=== PATIENT | female | born 1985 ===

== ENCOUNTER 2018-06-13 07:46 | Outpatient (CLI) | payer BC ==
[2018-06-13 11:17] LABS: HGB - HEMOGLOBIN 13.8 g/dL (12.0-16.0); MEAN CORPUSCULAR HEMOGLOBIN 29.8 pg (27.0-31.0); MEAN CORPUSCULAR VOLUME 85.2 fL (81.0-99.0); MEAN PLATELET VOLUME 6.7 fL (7.9-10.8); RED BLOOD COUNT 4.64 10^6/uL (4.20-5.40); RED CELL DISTRIBUTION WIDTH 13.8 % (12.0-15.0); WHITE BLOOD COUNT 5.1 x10^3/uL (4.8-10.8)
[2018-06-13 11:38] LABS: HB2 TOTAL 14.4 g/dL; HEMOGLOBIN A1C 0.5 g/dL; HEMOGLOBIN A1C % 5.3 % (4.6-6.2)
== END 2018-06-13 07:47 | disposition home or self-care (01) ==
LOC: LAB.F 07:46
PROVIDERS: ATTEND Registered Nurse
DX: N93.9 Abnormal uterine and vaginal bleeding, unspecified (principal)
CPT/HCPCS: 36415; 82951; 83036; 84443; 85027

== ENCOUNTER 2018-06-13 17:27 | Outpatient (CLI) | payer BC ==
--- NOTE | 2018-06-14 15:20 | Ultrasound Report ---
Reason: ABNORMAL UTERINE AND VAGINAL BLEEDING Procedure Date: 06/13/2018 Accession Number: [id number] / [id number] Procedure: US - Pelvic w/Transvaginal CPT Code: FULL RESULT: EXAM: PELVIC ULTRASOUND EXAM DATE: 06/13/2018 06:19 PM. CLINICAL HISTORY: ABNORMAL UTERINE AND VAGINAL BLEEDING. status is unknown COMPARISON: None. TECHNIQUE: Realtime transabdominal pelvic scan performed to identify the uterus and adnexa and as an overview of other pelvic structures, followed by transvaginal scan to provide greater detail of the uterus and adnexa, with static image documentation. FINDINGS: Uterus: 7.6 x 3.9 x 2.9 cm cm, volume 45 cc. Anteverted position. Normal overall size and echotexture. Masses: None. Endometrium: 4 mm. Small ovoid anechoic structure that measures 3 x 7 x 2 mm. No vascularity to the lesion. Cervix: Unremarkable. Right Ovary: 3.9 x 2.7 x 1.9 cm, volume 10.6 cc. Normal echotexture and blood flow. Left Ovary: 3.3 x 2.1 x 2.6 cm, volume 9.5 cc. A small echogenic focus that measures 5 mm is seen. There is normal color Doppler flow and background ovarian echogenicity is normal. Free Fluid: None. Other: None. IMPRESSION: Essentially a normal pelvic ultrasound, however there is a subcentimeter ovoid area of anechogenicity within the endometrium. Could represent a tiny amount of blood or fluid, pseudo-gestational sac, and correlation with a serum beta hCG is recommended. In the setting of a negative test, no further follow-up imaging would be recommended, however if patient is , ectopic cannot be excluded and ultrasound follow-up would be necessary in 1 week. RADIA
== END 2018-06-13 17:28 | disposition home or self-care (01) ==
LOC: DI 17:27
PROVIDERS: ATTEND Registered Nurse
DX: N93.9 Abnormal uterine and vaginal bleeding, unspecified (principal)
CPT/HCPCS: 36415; 76830; 76856; 82951; 83036; 84443; 85027

== ENCOUNTER 2018-06-21 07:49 | Outpatient (CLI) | payer BC | END 2018-06-21 07:50 | disposition home or self-care (01) | LOC: LAB 07:49 | PROVIDERS: ATTEND Registered Nurse | DX: N93.9 Abnormal uterine and vaginal bleeding, unspecified (principal) | CPT/HCPCS: 36415; 82951 ==

== ENCOUNTER 2018-11-11 09:21 | Outpatient (CLI) | payer BC ==
--- NOTE | 2018-11-12 00:58 | Ultrasound Report ---
Reason: OVARIAN DYSFUNCTION Procedure Date: 11/11/2018 Accession Number: [id number] / [id number] Procedure: US - Pelvic w/Transvaginal CPT Code: FULL RESULT: EXAM: PELVIC ULTRASOUND EXAM DATE: 11/11/2018 10:04 AM. CLINICAL HISTORY: OVARIAN DYSFUNCTION. COMPARISON: PELVIC W/TRANSVAGINAL 06/13/2018 5:31 PM. TECHNIQUE: Realtime transabdominal pelvic scan performed to identify the uterus and adnexa and as an overview of other pelvic structures, followed by transvaginal scan to provide greater detail of the uterus and adnexa, with static image documentation. FINDINGS: Uterus: 7.8 x 3.4 x 4.2 cm, volume 58 cc. Anteverted position. Normal overall size and echotexture. Masses: None. Endometrium: 8 mm. No focal endometrial abnormalities. Cervix: Multiple nabothian cysts. Right Ovary: 3.7 x 2.3 x 3.7 cm, volume 16.7 cc. Normal echotexture and blood flow. Increased numbers of predominantly peripheral follicles. Left Ovary: 3.6 x 1.8 x 3.1 cm, volume 10.2 cc. Normal echotexture and blood flow. Increased numbers of predominantly peripheral follicles. Free Fluid: None. Other: None. IMPRESSION: Polycystic ovarian morphology, consistent with given history of PCOS. RADIA
== END 2018-11-11 09:22 | disposition home or self-care (01) ==
LOC: DI 09:21
PROVIDERS: ATTEND Registered Nurse
DX: E28.2 Polycystic ovarian syndrome (principal)
CPT/HCPCS: 76830; 76856

== ENCOUNTER 2018-11-17 08:36 | Outpatient (CLI) | payer BC | END 2018-11-17 08:37 | disposition home or self-care (01) | LOC: LAB.F 08:36 | PROVIDERS: ATTEND Registered Nurse | DX: E03.9 Hypothyroidism, unspecified (principal) | CPT/HCPCS: 36415; 84443 ==

== ENCOUNTER 2018-12-08 08:50 | Outpatient (CLI) | payer MEDICAID ==
[2018-12-08] MEDS ORDERED: IOTHALAMATE MEGLUMINE 50 ML VIAL ONE (09:24)
--- NOTE | 2018-12-08 13:15 | XRAY Report ---
Reason: INFERTILITY Procedure Date: 12/08/2018 Accession Number: [id number] / [id number] Procedure: FL - Hysterosalpingogram CPT Code: FULL RESULT: EXAM: HYSTEROSALPINGOGRAM EXAM DATE: 12/08/2018 10:21 AM. CLINICAL HISTORY: INFERTILITY. COMPARISONS: None. TECHNIQUE: Patient was placed in the lithotomy position. A speculum was utilized to visualize the cervix. The cervical os was cleansed with Betadine swabs and a hysterosalpingography catheter inserted without complication through the cervical canal and the balloon inflated. Under fluoroscopic observation, the endometrial canal was filled with sterile contrast. Multiple spot views were saved for review. Fluoroscopy Time: 1.2 minutes. Number of fluoroscopy images: 6. FINDINGS: Uterus: The endometrial canal is well distended with contrast and has a smooth normal contour. Tubes: The fallopian tubes fill with contrast without delay bilaterally. They are normal in caliber with smooth contour. No obstruction evident. Contrast spills into the peritoneum bilaterally. Other: The initial images showing nondilated fallopian tubes and a normal endometrial cavity did not transfer over, but under fluoroscopy they were entirely normal. Images that were documented revealed bilateral peritoneal spillage. IMPRESSION: Normal hysterosalpingogram. No tubal obstruction or filling defects. RADIA
== END 2018-12-08 08:51 | disposition home or self-care (01) ==
LOC: DI 08:50
PROVIDERS: ATTEND Registered Nurse
DX: N97.9 Female infertility, unspecified (principal)
CPT/HCPCS: 58340; 74740; Q9961

== ENCOUNTER 2019-04-02 13:30 | Outpatient (CLI) | payer OTHER, MEDICAID ==
--- NOTE | 2019-04-04 15:42 | Ultrasound Report ---
Reason: TEST POSITIVE Procedure Date: 04/02/2019 Accession Number: [id number] / [id number] Procedure: US - OB First Trimester CPT Code: FULL RESULT: EXAM: FIRST TRIMESTER OBSTETRIC ULTRASOUND (Less than 11 weeks) EXAM DATE: 04/02/2019 02:26 PM. CLINICAL HISTORY: TEST POSITIVE. LMP: 02/08/2019. COMPARISONS: None. TECHNIQUE: Transabdominal and transvaginal ultrasound examination with static image documentation. CLINICAL DATES: EGA 7 weeks 4 days with GERBER 11/14/2018 based on LMP. ASSESSMENT: Gestational Sac: Single intrauterine. Mean gestational sac diameter: 20.4 mm = 6 weeks 6 days. Embryo: CRL (crown-rump length) 8.1 mm = 6 weeks 5 days. Cardiac activity: 161 beats per minute. Yolk sac: 4.5 mm. Amniotic fluid: Not accurately assessed at this gestational age. Early placenta: Not visible at this gestational age. Other: Small inferior perigestational fluid collection noted 0.9 x 0.5 x 0.9 cm. MATERNAL STRUCTURES: Uterus: Anteverted. Unremarkable. Cervix: Closed. Right Ovary/Adnexa: The ovary measures 2.8 x 1.7 x 2.0 cm, volume 5.4 cc. Unremarkable. Left Ovary/Adnexa: The ovary measures 4.0 x 2.5 x 3.5 cm, volume 18.3 cc. Simple cyst/follicle noted 2.3 x 1.3 x 2.5 cm, otherwise unremarkable. Free Fluid: None. Other: None. IMPRESSION: 1. Single viable intrauterine at EGA 6 weeks 5 days with GERBER 11/21/2019 based on crown-rump length, which is concordant with clinical dates. 2. Small perigestational hemorrhage noted, 0.9 x 0.5 x 0.9 cm. RADIA
== END 2019-04-02 13:31 | disposition home or self-care (01) ==
LOC: DI 13:30
PROVIDERS: ATTEND Nurse Practitioner Obstetrics & Gynecology
DX: Z32.01 Encounter for pregnancy test, result positive (principal); O46.91 Antepartum hemorrhage, unspecified, first trimester; Z3A.01 Less than 8 weeks gestation of pregnancy
CPT/HCPCS: 76801; 76817